=== PATIENT | male | born 1940 | race Two or more races ===

== ENCOUNTER 2020-10-05 06:45 | Day surgery (SDC) | payer OTHER ==
[~2020-10-05 06:45] MED LIST: ADULT LOW DOSE81 M1 PO; ATORVASTATIN CA40 MG PO; TIROSINT88 MCG PO; TOPROL XL25 M1 PO; ZETIA10 MG PO
== END 2020-10-05 12:15 | disposition home or self-care (01) ==
LOC: AMB-ENDOS 06:45 → CIR.AMB 10:30 → AMB-ENDOS 10:30
PROVIDERS: ATTEND Surgery
DX: K64.8 Other hemorrhoids (principal); Z20.822 Contact with and (suspected) exposure to COVID-19; Z12.11 Encounter for screening for malignant neoplasm of colon

== ENCOUNTER 2020-10-07 08:54 | Day surgery (SDC) | payer OTHER ==
[2020-10-07] MEDS ORDERED: PERCOCET 5-3251 EACH PO (15:14)
== END 2020-10-07 21:12 | disposition home or self-care (01) ==
LOC: CIR.AMB 08:54 → EDSTATUS 09:30 → CIR.AMB 09:30 → SURH 09:30 → CIR.AMB 21:12
PROVIDERS: ATTEND Surgery
DX: K64.4 Residual hemorrhoidal skin tags (principal); K64.8 Other hemorrhoids; Z20.822 Contact with and (suspected) exposure to COVID-19